=== PATIENT | female | born 1955 | race Caucasian/White ===

== ENCOUNTER 2016-07-15 07:43 | Day surgery (SDC) | payer BC ==
--- NOTE | ~2016-07-15 | EGD ---
EGD REPORT [facility] [address] [address] NAME: MICHELL MENDOZA : 55 STATUS : [facility]#: [id number] AGE: 61 ADM/REG DATE : 07/15/16 MR#: [id number] REPORT SERV DATE: 07/15/16 DICTATED BY: DAVION THOMPSON DATE: 07/15/16 REPORT STATUS : Draft TRANSCRIBED BY: [employer] DATE: 07/15/16 [facility] Patient Name: Michell Mendoza Date of : 1955 Attending MD: DAVION THOMPSON MD Procedure Date No Time: 07/15/2016 Procedure: Upper GI endoscopy Indications: Dysphagia, Heartburn, Suspected esophageal reflux, Unexplained chest pain Referring MD: RASHEED PRESSLEY MD Medicines: as per anesthesia Complications: No immediate complications. Procedure: Pre-Anesthesia Assessment: - ASA Grade Assessment: II - A patient with mild systemic disease. After obtaining informed consent, the endoscope was passed under direct vision. Throughout the procedure, the patient's blood pressure, pulse, and oxygen saturations were monitored continuously. The GIF [id number] was introduced through the mouth, and advanced to the third part of duodenum. The upper GI endoscopy was accomplished without difficulty. The patient tolerated the procedure. Findings: Mildly severe esophagitis was found in the lower third of the esophagus. Biopsies were taken with a cold forceps for histology. The scope was withdrawn. Dilation was performed with a Valera dilator with no resistance at 46 Fr. Localized mild inflammation characterized by erythema was found in the gastric antrum. Biopsies were taken with a cold forceps for histology. The cardia and gastric fundus were normal on retroflexion. The examined duodenum was normal. Impression: - Mildly severe reflux esophagitis. Rule out Funes's esophagus. Biopsied. Dilated. - Gastritis. Biopsied. - Normal examined duodenum. Recommendation: - Await pathology results. - Follow an antireflux regimen. - Use Prilosec (omeprazole) 40 mg PO daily. Procedure Code(s): --- Professional --- 97666, Esophagogastroduodenoscopy, flexible, transoral; EGD REPORT [address] [address] NAME: MICHELL MENDOZA SEPTEMBER : 55 [place]US [place] [facility] [id number] AGE: 61 ADM/REG DATE : 07/15/16 MR#: [id number] REPORT SERV DATE: 07/15/16 DICTATED BY: DAVION THOMPSON. DATE: 07/15/16 REPORT STATUS : Draft TRANSCRIBED BY: [employer] DATE: 07/15/16 with biopsy, single or multiple [id number], Dilation of esophagus, by unguided sound or bougie, single or multiple passes Diagnosis Code(s): --- Professional --- K21.0, Gastro-esophageal reflux disease with esophagitis K29.70, Gastritis, unspecified, without bleeding R13.10, Dysphagia, unspecified R12, Heartburn R07.9, Chest pain, unspecified CPT copyright 2013 [employer]. All rights reserved. The codes documented in this report are preliminary and upon records specialist review may be revised to meet current compliance requirements. DAVION THOMPSNO MD 07/15/2016 9:35 AM This report has been signed electronically. Number of Addenda: 0 Note Initiated On: 07/15/2016 9:12 AM Scope Withdrawal Time 0 hours 0 minutes 0 seconds [address] [place] [address]
[~2016-07-15 07:43] MED LIST: AZOR PO; AZOR1 TA2 PO; AZOR1 TAB PO; BYSTOLIC10 MG PO; CRESTOR10 PO; Crestor PO; DIOV160 PO; DULERA 100 MCG/13 GM INH; EFFEXXR37 PO; HYDROCHLOROT12.5 MG PO; KLOR-CON 1010 MEQ PO; LEXAPRO10 PO; NOLV10 PO; PRILOSEC OTC20 MG PO; QSYMIA 15 MG-91 EACH PO; SINGULAIR1 PO; VENTOLIN HFA INH; ZANTAC150 MG PO
== END 2016-07-15 23:59 | disposition home or self-care (01) ==
LOC: DMU 07:43
PROVIDERS: Internal Medicine Gastroenterology
PROC: 0D737ZZ Dilation of Lower Esophagus, Via Natural or Artificial Opening (ICD-10-PCS; 2016-07-15)
PROC: 0DB38ZX Excision of Lower Esophagus, Via Natural or Artificial Opening Endoscopic, Diagnostic (ICD-10-PCS; principal; 2016-07-15 09:00)
PROC: 0DB68ZX Excision of Stomach, Via Natural or Artificial Opening Endoscopic, Diagnostic (ICD-10-PCS; 2016-07-15 09:00)
DX: K29.50 Unspecified chronic gastritis without bleeding (principal); K21.0 Gastro-esophageal reflux disease with esophagitis; I10 Essential (primary) hypertension; R13.10 Dysphagia, unspecified; E78.00 Pure hypercholesterolemia, unspecified; R12 Heartburn; K58.9 Irritable bowel syndrome, unspecified; R07.9 Chest pain, unspecified; Z88.8 Allergy status to other drugs, medicaments and biological substances; Z90.89 Acquired absence of other organs; Z90.49 Acquired absence of other specified parts of digestive tract; Z98.890 Other specified postprocedural states; Z90.12 Acquired absence of left breast and nipple; Z85.3 Personal history of malignant neoplasm of breast; Z92.21 Personal history of antineoplastic chemotherapy
CPT/HCPCS: 88305